=== PATIENT | male | born 1965 | race Caucasian/White ===

== ENCOUNTER 2017-07-29 21:06 | Emergency (ER) | payer OTHER ==
[~2017-07-29] VITALS: Ht 175.3 cm; Wt 90.7 kg
[2017-07-29 21:06] VITALS: BP_SYST 131
--- NOTE | 2017-07-29 21:15 | NUR ---
Placed in room H2 . IN CHAIR FOR EXAM, BROUGHT IN BY [facility]. Report given to TIANNA Bain.
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
--- NOTE | 2017-07-29 21:20 | NUR ---
ER MD Trevino with patient for medical evaluation.
--- NOTE | 2017-07-29 21:34 | NUR ---
Patient given written and verbal discharge instructions and verbalizes understanding. ER MD discussed with patient the results and treatment provided. Patient in stable condition. ID arm band removed. No Rx given. Patient educated on pain management and to follow up with PMD. Pain Scale 0/10. Opportunity for questions provided and answered.
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
[2017-07-29 22:20] VITALS: BP_SYST 131
== END 2017-07-29 22:20 ==
LOC: SED 21:06
DX: Z02.89 Encounter for other administrative examinations (principal); F10.129 Alcohol abuse with intoxication, unspecified; V89.2XXA Person injured in unspecified motor-vehicle accident, traffic, initial encounter; Y93.89 Activity, other specified; Y92.89 Other specified places as the place of occurrence of the external cause; Y99.8 Other external cause status
CPT/HCPCS: 99283